=== PATIENT | male | born 1980 | race Caucasian/White ===

== ENCOUNTER 2022-01-13 08:39 | Emergency (ER) | payer OTHER ==
[~2022-01-13] VITALS: Ht 180.3 cm; Wt 86.2 kg
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
[2022-01-13] MEDS ORDERED: METHOCARBAMOL500 MG PO (11:31)
== END 2022-01-13 11:43 | disposition home or self-care (01) ==
LOC: ED 08:39
DX: S39.012A Strain of muscle, fascia and tendon of lower back, initial encounter (principal); V89.2XXA Person injured in unspecified motor-vehicle accident, traffic, initial encounter
CPT/HCPCS: 70450; 71250; 99284-25

== ENCOUNTER 2022-03-29 16:15 | Emergency (ER) | payer OTHER ==
[~2022-03-29] VITALS: Ht 180.3 cm; Wt 86.2 kg
[~2022-03-29 16:15] MED LIST: METHOCARBAMOL500 MG PO
== END 2022-03-29 18:05 | disposition other institution, planned readmission (95) ==
LOC: ED 16:15
DX: R10.13 Epigastric pain (principal); F10.120 Alcohol abuse with intoxication, uncomplicated
CPT/HCPCS: 36415; 80053; 83690; 85025; 99285; G0480

== ENCOUNTER 2023-11-18 11:58 | Emergency (ER) | payer BC, OTHER ==
[~2023-11-18] VITALS: Ht 180.3 cm; Wt 84.0 kg
--- NOTE | ~2023-11-18 | EKG ---
[facility] [address] [facility] [facility] [place], [place] [address] Draft EKG completed, results pending confirmation PATIENT NAME: CELE ALAS Electrocardiogram DATE OF : 82 PHYSICIAN: PRELIMINARY REPORT #: [id number] REPORT IS CONFIDENTIAL AND NOT TO BE RELEASED WITHOUT AUTHORIZATION
[~2023-11-18 11:58] MED LIST changes: +OMEPRAZOLE20 MG PO
[2023-11-18] MEDS ORDERED: ASPIRIN 81 MG CHEW PO ONE (12:15)
[2023-11-18] MEDS ORDERED: NITROGLYCERIN 0.4 MG SUBL SL PRN (12:15)
[2023-11-18 12:27] LABS: BASOPHILS 0.5 % (0-2); EOSINOPHILS 0.2 % (0-6); HEMATOCRIT 42.3 % (35.0-50.0); HEMOGLOBIN 14.2 g/dL (12.0-18.0); LYMPHOCYTES 16.1 % (24-44); MCH 32.1 (27-36); MCHC 33.5 g/dl (30-36); MCV 95.9 fl (81-99); MONOCYTES 8.4 % (0-12); NEUTROPHILS 74.8 % (39-80); PLATELET COUNT 239 K/uL (140-440); RBC 4.41 M/ul (4.3-5.7); RDW 12.6 (10.5-15.0)
[2023-11-18] MEDS ORDERED: AMOX TR-K CLV1 EAC1 PO (12:30)
[2023-11-18 12:45] LABS: PARTIAL THROMBOPLASTIN TIME 24.9 Sec (22.9-41.3)
[2023-11-18 12:46] LABS: INR 1.01 (0.80-1.30); PROTIME 12.6 Sec (11.2-14.2)
[2023-11-18 12:51] LABS: ALBUMIN/GLOBULIN RATIO 1.18 (1.1-2.4); ANION GAP 11.6 (7-21); BUN/CREATININE RATIO 7.14 (6.0-28.6); CALCIUM 9.1 mg/dL (8.5-10.1); CREATININE, SERUM 1.12 mg/dL (0.70-1.30); MAGNESIUM 1.8 mg/dL (1.8-2.4); POTASSIUM 3.6 mmol/L (3.5-5.1); PROTEIN, TOTAL 7.4 g/dL (6.4-8.2)
[2023-11-18 15:45] VITALS: BP 127/79
== END 2023-11-18 15:45 | disposition home or self-care (01) ==
LOC: ED 11:58
PROVIDERS: Emergency Medicine
DX: R07.9 Chest pain, unspecified (principal); R55 Syncope and collapse; F43.10 Post-traumatic stress disorder, unspecified; Z79.899 Other long term (current) drug therapy
CPT/HCPCS: 36415; 71260; 80053; 80307; 83735; 83880; 84484; 85025; 85610; 85730; 93005; 93010; 99285-25; A9270; Q9967